=== PATIENT | female | born 1950 | race Two or more races ===

== ENCOUNTER 2024-07-24 12:17 | Outpatient (REF) | payer MEDICARE, MEDICAID, SELFPAY ==
[2024-07-24 14:32] LABS: Erythrocyte Sedimentation Rate 12 MM/HR (0-20)
[2024-07-24 14:46] LABS: TSH reflex Free T4 0.95 uIU/mL (0.32-4.0)
[2024-07-25 19:23] LABS: Thyroid Peroxidase Antibodies <1 IU/mL (<9)
[2024-07-29 11:19] LABS: Anti Nuclear Antibody Screen NEGATIVE (NEGATIVE)
[2024-07-30 05:08] LABS: Aldolase 6.1 U/L (<=8.1)
== END 2024-07-24 12:18 | disposition home or self-care (01) ==
LOC: HO.LAB 12:17
PROVIDERS: PCP Physician Assistant; Visit Provider Psychiatry & Neurology Neurology
DX: M79.7 Fibromyalgia (principal)
CPT/HCPCS: 36415; 82085; 82550; 84443; 85652; 86038; 86376

== ENCOUNTER 2024-11-06 14:01 | Outpatient (AMB) | payer MEDICARE, MEDICAID, SELFPAY ==
--- NOTE | 2024-11-06 14:24 | A.OFFVIS_ITS ---
Intake Visit Reasons: FM Allergies No Known Allergies Allergy (Verified 11/05/24 15:00) Medication List - Last Reconciled 11/06/24 by Kiera Escobar MD alendronate 70 mg PO QWEEK atorvastatin (Lipitor) 80 mg PO DAILY bupropion HCl XL (Wellbutrin XL) 150 mg PO QAM estradiol 0.01%(0.1mg/gram) 1 g vaginal QWEEK gabapentin 600 mg PO TID losartan 100 mg PO DAILY zolpidem 5 mg PO BEDTIME HPI Comments Details: This is a 73-year-old woman who was diagnosed with fibromyalgia many years ago because of numbness in her back, aching pain and tingling and numbness in her arms and legs and restlessness in her body.? She also has constant back pain from kyphoscoliosis.? Recently, she had a spell during sleep where she was very cold and shivering violently and her legs felt rubbery.? She suffers from depression as well.? She wants to know if there is any of the diagnosis and what other treatment options are available. [facility] Medical History (Updated 11/06/24 @ 14:29 by Kiera Escobar MD) Hypertension Fibromyalgia Review of Systems Const Details: ?Sleep:? Difficulty getting to sleepdenies.? Difficulty maintaining sleepdenies?.? Urge to move legsdenies.? Teeth grindingdenies.? Shouting or Kicking during sleep denies.? Abnormal behavior during sleepdenies.? Excessive sleepdenies.? Snoring denies.? Daytime sleepinessdenies. ???General/Constitutional:? Change in appetitedenies.? Chillsdenies.? Fatiguedenies.? Feverdenies.? Weight gaindenies.? Weight lossdenies. ???Ophthalmologic:? Blurred visiondenies.? Diminished visual acuitydenies. ???ENT:? Stuffinessdenies.? Decreased hearingdenies.? Dry mouthdenies.? Ear paindenies.? Nosebleeddenies.? Ringing in the earsdenies.? Sinus paindenies.? Sore throat denies.? Swollen glandsdenies. ???Endocrine:? Cold intolerancedenies.? Excessive thirstdenies.? Frequent urinationdenies.? Heat intolerancedenies. ???Respiratory:? Shortness of breathdenies.? Chest paindenies.? Coughdenies. ???Breast:? Breast lumpdenies.? Nipple dischargedenies. ???Cardiovascular:? Chest pain at restdenies.? Chest pain with exertiondenies.? Claudicationdenies .? Dizzinessdenies.? Fluid accumulation in the legsdenies.? Irregular heartbeat denies.? Palpitationsdenies. ???Gastrointestinal:? Abdominal paindenies.? Constipationdenies.? Diarrheadenies.? Difficulty swallowingdenies.? Heartburndenies.? Nauseadenies.? Rectal bleedingdenies. ???Hematology:? Easy bruisingdenies.? Prolonged bleedingdenies. ???Genitourinary:? Frequent urinationdenies.? Urgencydenies.? Incontinencedenies.? Erectile Dysfunctiondenies. ???Musculoskeletal:? Neck painadmits.? Back painadmits.? Muscle achesadmits.? Painful jointsdenies.? Sciaticadenies.? Weaknessadmits. ???Podiatric:? Difficulty walkingdenies.? Foot numbnessdenies. ???Neurologic:? Difficulty swallowingdenies.? Balance difficultydenies.? Coordinationnormal.? Difficulty speakingdenies.? Dizzinessdenies.? Faintingdenies.? Gait abnormality denies.? Headachedenies.? Loss of strengthdenies.? Loss of use of extremity denies.? Low back paindenies.? Memory lossdenies.? Seizuresdenies.? Ticsdenies.? Tingling/Numbnessadmits.? Transient loss of visiondenies.? Tremordenies. ???Psychiatric:? Anxietydenies.? Auditory/visual hallucinationsdenies.? Delusionsdenies.? Depressed moodadmits.? Stressorsdenies.? Substance abusedenies.? Suicidal thoughtsdenies. Physical Exam Neuro Other: Neurological: Abnormal neurological findings:??none.?Mental Status:??alert and oriented X 3,?Normal attention, orientation, memory and affect.?Cranial Nerves:??Pupils are equal, round and reactive to light. Fundoscopy shows normal disc bilaterally. External occular muscles are intact. Visual brooks are full, no ptosis. Face is symmetrical, no facial weakness or droop. Facial sensations are normal. Tongue protrudes in midline. Palate elevates symmetrically. Shoulder shrugging is normal..?Motor Examination:??Normal muscle tone, bulk and strength,?No atrophy or fasciculations,?No drift of the extended upper extremities,?Deep tendon reflexes are 2+?,?Plantars are flexor?.?Motor Strength:?Proximal Muscles (out of 5):5Distal Muscles (out of 5):5Neck Flexors (out of 5):5Neck Extensors (out of 5):5Deltoid (out of 5):5Biceps (out of 5):5Triceps (out of 5):5Serratus Anterior (out of 5):5Wrist Extensors (out of 5):5APB (out of 5):5Finger Spread (out of 5):5Ileopsoas (out of 5):5Quadriceps (out of 5):5Hamstrings (out of 5):5Tibialis Anterior (out of 5):5Peronei (out of 5):5EDB (out of 5):5Gastrocnemius (out of 5):5Straight Leg Raising:??90 degrees.?Sensory Exam:??Normal light touch, temperature, pinprick, vibration and joint-position sensations?,?Rhomberg sign is absent.?Coordination:??no ataxia,?no titubation,?uvsfuj-ew-[id number], boeg-avxl-[id number] test and rapid alternating movements were normal.?Gait Exam:??Wit hin normal limits.?Cerebellar Signs:??Vatbco-ro-xhao and qvvw-xq-xgev is normal,?no dysdiadochokinesia?.?Extrapyramidal System:??No tremor, rigidity with normal facial expressions,?No bradykinesia, no bradyphrenia. Normal arm swing and posture. No propulsion or retropulsion.?Speech:??Normal,?no dysphasia or dysarthria..? Mini Mental Status Exam: Level of Consciousness:??Alert.?Orientation:??Knows correct year, month, date, day and season,?Knows correct city, county and state. Knows correct location and floor.?Registration:??Able to register 3 objects.?Attention:??Serial 7's performed accurately.?Recall:??Able to recall 3 out of 3 objects.?Language:??Normal spontaneous speech, fluency, repetition,naming, comprehension, reading and writing.?Total Score:??3030.? Results Reviewed Results Reviewed: 08/14/2024 nerve conduction EMG study: Normal motor and sensory nerve conduction velocities in the upper and lower extremities. Normal EMG in the right C5-T1, and right L4-S1 innervated muscles 07/24/2024 labs normal except for borderline CPK of 183 Assessment & Plan Assessment & Plan (1) Fibromyalgia: Code(s): M79.7 - Fibromyalgia Category: Medical (2) Chronic low back pain: Code(s): M54.50 - Low back pain, unspecified; G89.29 - Other chronic pain Category: Medical Plan Increase Gabapentin gradually over 2 weeks to 600mg tid. Push the dose of gabapentin to the maximum tolerated dose. If she does not get sufficient relief with that would consider switching her to pregabalin 150 mg b.i.d.. That evaluation would be made on the next follow-up visit in 2-3 months Coding Level of Care Code Est Pt Level 4 (77813) Diagnoses Fibromyalgia M79.7 Chronic low back pain M54.50; G89.29
== END 2024-11-06 15:09 | disposition home or self-care (01) ==
LOC: HO.HSM 14:01
PROVIDERS: PCP Physician Assistant; Referring Provider Physician Assistant; Visit Provider Psychiatry & Neurology Neurology
DX: M79.7 Fibromyalgia (principal); M54.50 Low back pain, unspecified; G89.29 Other chronic pain
CPT/HCPCS: 99214

== ENCOUNTER → 2024-11-06 14:01 | Outpatient (BNVA) | payer MEDICARE, MEDICAID, SELFPAY | PROVIDERS: PCP Physician Assistant; Referring Provider Physician Assistant; Visit Provider Psychiatry & Neurology Neurology | DX: M79.7 Fibromyalgia (principal); M54.50 Low back pain, unspecified; G89.29 Other chronic pain | CPT/HCPCS: 99212 ==